=== PATIENT | male | born 1990 | race Caucasian/White ===

== ENCOUNTER 2020-09-16 12:26 | Emergency (ER) | payer OTHER, SELFPAY ==
[2020-09-16 12:26] VITALS: BP 115/111; PULSE 69; RESP 14; TEMP 36.4; O2SAT 99; BMI 34.5
[2020-09-16 12:54] VITALS: BP 115/111; PULSE 69; RESP 14; TEMP 36.4; O2SAT 99
--- NOTE | 2020-09-16 12:56 | HMH.EDUTC ---
[facility] [place] Disposition Clinical Impression: Exposure to COVID-19 virus Disposition: Home, Self-Care Condition on Discharge: Good Instructions: DI for COVID-19 (Suspected or Confirmed ), Preventing the Spread of Coronavirus Discharge Instructions Additional Instructions: Drink plenty of fluids. Take tylenol for pain or fever. Return if you begin to have difficulty breathing or other worsening concerning symptoms. Follow up with your regular doctor. GO TO THE ER FOR ANY WORSENING SYMPTOMS Referrals: PCP,No [Primary Care Provider] - Time of Disposition: 12:58 Medical Decision Making - Medical Records Medical records reviewed: No: I reviewed the patient's medical records. - Yao Inquiry Pt receiving controlled substance: No Vital Signs: 09/16/20 12:26 09/16/20 12:54 Temperature 97.5 F L 97.5 F L Temperature Source Oral Oral Pulse Rate 69 Pulse Rate [Right] 69 Respiratory Rate 14 14 Blood Pressure 115/111 H Blood Pressure [Right Arm] 115/111 H Blood Pressure Mean [Right Arm] 112 02 Sat by Pulse Oximetry 99 Oxygen Delivery Method Room Air Orders (Tests/Meds): ORDERS Category Date Time Status Covid-19 Nasal PCR Sendout P&C Routine Lab 09/16/20 12:40 Received [facility] [place] HPI - General Stated complaint: covid exposure Time Seen by Provider: 09/16/20 12:56 Description of Symptoms (Recalled from Triage Doc. by RN): pt request COVID test pt has no symptoms HEENT Symptoms (Recalled from RN notes): No Resp Symptoms (Recalled from RN notes): No Skin Symptoms (Recalled from RN notes): No MS Symptoms (Recalled from RN notes): No Functional Status (Recalled from RN notes): wnl - History of Present Illness Provider Complaint: He states that he has been exposed to covid. He denies that it was a close contact. He was helping one of his friends work on something, then he found out that that person had covid. He denies any symptoms so far. - Related Data Previous Rx's Medication Instructions Recorded amoxicillin 500 mg capsule 500 mg PO Q12H 10 Days #20 cap 10/24/19 prednisone 20 mg tablet 20 mg PO BID 5 Days #10 tab 10/24/19 Allergies Allergy/AdvReac Type Severity Reaction Status Date / Time No Known Allergies Allergy Verified 10/24/19 17:24 - Worker's Comp Is this a Worker's Comp case?: No Is this an H Worker's Comp?: No Is this a Radames Worker's Comp?: No [facility] History - Hepatitis A Screen Drug use history?: No High risk sexual behaviors?: No History of sexually transmitted infection?: No Currently employed?: No Childcare worker?: No Do you have indoor plumbing?: Yes Do you have electricity?: Yes Attestation statement:: This patient has been screened for Hepatitis A risk factors. I have reviewed the patient's past medical history: Yes Other Surgeries: Yes: Other Amputation: No Fractures: No - Social History Smoking Status: Never smoker Alcohol Intake: never Alcohol Intake Frequency:: holidays/special occasions only Substance Use Type: denies use Occupational Status: employed Housing: house Household Members: family Family Hx:: Diabetes ROS Obtained: Yes All systems reviewed & no additional complaints - Constitutional Constitutional: Reports system reviewed and no additional complaints, except as docu - Eyes Eyes: Reports system reviewed and no additional complaints, except as docu - ENT Ears, Nose, Mouth, and Throat: Reports system reviewed and no additional complaints, except as docu - Cardiovascular Cardiovascular: Reports system reviewed and no additional complaints, except as docu - Respiratory Respiratory: Reports system reviewed and no additional complaints, except as docu - Gastrointestinal Gastrointestingal: Reports: system reviewed and no additional complaints, except as docu Physical Exam - General General appearance: alert, in no apparent distress - Head Head exam: atraumatic, normocephalic, normal inspection - Eye Eye e
[2020-09-17 09:10] LABS: Covid-19 Nasal PCR Sendout P&C NEGATIVE
== END 2020-09-16 13:01 | disposition home or self-care (01) ==
PROVIDERS: Emergency Provider Nurse Practitioner Family
DX: Z20.822 Contact with and (suspected) exposure to COVID-19 (principal)
CPT/HCPCS: 99202; G0463; U0004

== ENCOUNTER → 2021-06-11 19:45 | Outpatient (CLI) | payer OTHER, SELFPAY | PROVIDERS: Visit Provider Nurse Practitioner Family | DX: Z20.822 Contact with and (suspected) exposure to COVID-19 (principal); U07.1 COVID-19 | CPT/HCPCS: C9803; U0003; U0005 ==

== ENCOUNTER → 2022-04-28 18:03 | Outpatient (CLI) | payer OTHER, SELFPAY ==
[2022-04-28 14:41] LABS: Basophils # 0.1 K/mm3 (0-0.2); Basophils % 0.8 % (0.1-2.0); Eosinophils # 0.1 K/mm3 (0.0-0.4); Eosinophils % 1.7 % (0.1-12.0); Hematocrit 47.3 % (42.0-52.0); Hemoglobin 15.2 g/dL (14.1-18.0); Lymphocytes # 2.5 K/mm3 (0.7-4.5); Lymphocytes % 30.6 % (10-50); Mean Corpuscular HGB Conc 32.2 g/dL (31.8-35.4); Mean Corpuscular Hemoglobin 28.5 pg (27.0-31.2); Mean Corpuscular Volume 88.4 fl (80-94); Mean Platelet Volume 8.1 fl (7.4-10.4); Monocytes # 0.6 K/mm3 (0.1-1.0); Monocytes % 7.5 % (1.7-9.3); Neutrophils # 4.9 K/mm3 (1.8-7.8); Neutrophils % 59.4 % (37.0-80.0); Platelet Count 414 K/mm3 (142-424); Red Blood Count 5.34 M/mm3 (4.60-6.20); Red Cell Distribution Width 13.2 % (11.5-17.5); White Blood Count 8.3 K/mm3 (4.8-10.8)
[2022-04-28 15:01] LABS: Alanine Aminotransferase 41 U/L (12-78); Albumin Level 4.4 g/dl (3.5-5.0); Albumin/Globulin Ratio 1.6 (1.1-1.8); Alkaline Phosphatase 112 U/L (38-126); Anion Gap 13.8 mEq/L (5-15); Aspartate Amino Transferase 43 U/L (17-59); Bilirubin,Total 0.6 mg/dl (0.2-1.3); Blood Urea Nitrogen 11 mg/dl (9-20); Calcium 9.3 mg/dl (8.4-10.2); Carbon Dioxide 25 mmol/L (22.0-30.0); Chloride 107 mmol/L (98-107); Chol/HDL Ratio 4.9 (1-3.5); Cholesterol 161 mg/dl (140-200); Estimated Glomerular Filt Rate 99 ml/min (>60); GFR (African American) 120 ML/MIN (>60); Globulin 2.7 g/dL (1.3-3.2); Glucose 89 mg/dl (74-100); HDL Cholesterol 33 mg/dl (40-60); Potassium 3.8 mmoL/L (3.5-5.1); Sodium 142 mmol/L (136-145); Total Protein,Serum 7.1 g/dl (6.3-8.2); Triglycerides 172 mg/dl (30-150); VLDL Cholesterol 34 mg/dL (0-40)
[2022-04-28 15:17] LABS: 25-OH Vitamin D, Total 38.3 ng/mL (30-100)
[2022-04-28 15:32] LABS: Thyroid Stimulating Hormone 0.71 uIU/mL (0.465-4.68)
[2022-04-28 15:51] LABS: Vitamin B12 498 pg/mL (239-931)
[2022-04-30 10:09] LABS: Direct LDL Cholesterol 92 mg/dL (100-129)
== END ==
PROVIDERS: PCP Physician Assistant; Visit Provider Physician Assistant
DX: F41.9 Anxiety disorder, unspecified (principal); R53.83 Other fatigue; E66.9 Obesity, unspecified; Z68.32 Body mass index [BMI] 32.0-32.9, adult
CPT/HCPCS: 80053; 80061; 82306; 82607; 84443; 85025

== ENCOUNTER 2023-12-16 09:16 | Emergency (ER) | payer OTHER, SELFPAY ==
[2023-12-16 09:40] VITALS: BP 144/93; PULSE 96; RESP 20; TEMP 36.7; O2SAT 96; BMI 34.9
[2023-12-16 10:00] LABS: UTC Strep Screen (Rapid) Negative (Negative)
--- NOTE | 2023-12-16 10:18 | ED_ITS ---
Discharge Plan Disposition Patient Disposition: Home, Self-Care Condition: Good Prescriptions Prescriptions: New methylprednisolone [Medrol (Humberto)] 4 mg tablets,dose pack See Rx Instructions .Route .COMPLEX 6 Days Qty: 21 0RF Rx Instructions: taper pack; vjbkdaqgnjwqbsm-pzcdtxixq-XD [Bromfed DM] 2-30-10 mg/5 mL syrup 10 ml PO Q6H PRN (Reason: cold symptoms) Qty: 200 0RF guaifenesin [Mucinex] 600 mg tablet extended release 12hr 1,200 mg PO BID PRN (Reason: cough) Qty: 20 0RF azithromycin [Zithromax Z-Humberto] 250 mg tablet See Rx Instructions .ROUTE .COMPLEX 5 Days Qty: 6 0RF Rx Instructions: For 250 mg dose pack: take 500 mg today (day 1), then 250 mg for 4 days (days 2-5) albuterol sulfate [Proventil HFA] 90 mcg/actuation HFA aerosol inhaler 1 - 2 puff inhalation Q6H PRN (Reason: shortness of breath or wheezing) Qty: 8.5 0RF Referrals Follow up/Referrals: Provider,Referral, MD [Primary Care Provider] - See instructions Activity Restrictions/Add. Instructions Additional Instructions/Restrictions: * Start antibiotic today. Be sure to complete entire prescription even if feeling better * Monitor temp. Tylenol every 4 hours as needed and / or ibuprofen every 6 hours as needed ( As long as your primary care physician has told you that it ok to take both. For fever/aches/pains ER if no less than 101 despite Tylenol or Motrin * Humidifier/vaporizer or hot steamy shower * Inhaler every 4-6 hours as needed like we discussed. If unsure how to use it, ask pharmacist to demonstrate how. Should help open airways and improve cough, wheezing, and shortness of breath * Mucinex during the day for your cough and cough suppressant only at night. Be sure to drink lots of water. Insurance may not cover a prescriptions for mucinex. Might be cheaper to get 400mg tablets and take 2 tablet in the morning, mid-day and evening with lots of water. *Bromfed may cause drowsiness. Know how it effects you (your child) before driving, caring for small child, or sending your child to school. Not other antihistamines/allergy medications while taking bromfed *Start steroid today. Helps with inflammation therefore, cough and wheezing. Follow directions on the package. Reviewed side effects. Patient reports taking them before. Follow up IMMEDIATELY for new or worsening of symptoms OR no noticeable improvement over the next 48-72 hours. 911 immediately for any life threatening symptoms such as chest pain or difficulty breathing Clinical Impressions Clinical Impression: Sinusitis, Bronchitis Instructions Patient Instructions: DI for Sinusitis, Acute Bronchitis Discharge ED Provider: Genevieve Ledezma [facility] [place] General Stated complaint: sore throat, runny nose, cough Mode of Arrival: Ambulatory Source of Information: Patient Limitations: No Limitations Time Seen by Provider: 12/16/23 10:18 Description of Symptoms (Recalled from Triage Doc. by RN): PATIENT C/O SORE THROAT, RUNNY NOSE AND PRODUCTIVE COUGH SINCE TUESDAY HEENT Symptoms (Recalled from RN notes): Yes Resp Symptoms (Recalled from RN notes): Yes Skin Symptoms (Recalled from RN notes): No MS Symptoms (Recalled from RN notes): No Functional Status (Recalled from RN notes): WNL History of Present Illness Provider Complaint: Patient states that he has been having sore throat, runny nose, cough that is productive at times, and pain with swallowing since Tuesday states that he has been taking OTC cough and cold medications but they havent helped much states today his throat was feeling worse so he came in to get checked Related Data Previous Rx's Medication Instructions Recorded albuterol sulfate 90 mcg/actuation 1 - 2 puff inhalation Q6H PRN 12/16/23 aerosol inhaler (Proventil HFA) shortness of breath or wheezing #8.5 grams azithromycin 250 mg tablet See Rx Instructions PO .COMPLEX 5 12/16/23 (Zithromax Z-Humberto) days #6 tabs bnkxmpelbqmdbsk-dslwrporlsohvjx-XP 10 ml PO Q6H PRN cold symptoms 12/16/23 2 mg-30 mg-10 mg/5 mL oral syrup #200 mL (Bromfed DM) guaifenesin 600 mg tablet, 1,200 mg (2 x 600 mg) PO BID PRN 12/16/23 extended release 12 hr (Mucinex) cough #20 tabs methylprednisolone 4 mg tablets in See Rx Instructions .Route 12/16/23 a dose pack (Medrol (Humberto)) .COMPLEX 6 days #21 tabs Allergies Allergy/AdvReac Type Severity Reaction Status Date / Time No Known Allergies Allergy Verified 04/28/22 09:34 Worker's Comp Is this a Worker's Comp case?: No [facility] Disclaimer: The information contained in this section may have been updated after the patient was seen, as this information can be updated by other users. Medical History (Updated 12/16/23 @ 10:29 by Genevieve Ledezma APRN) Anxiety Low back pain Crush accident Surgical History Fracture of hand Family History (Updated 04/28/22 @ 09:37 by Mary Jackson MA) Mother Diabetes Father Heart attack Social History (Updated 04/28/22 @ 10:20 by YAYA Renteria) Smoking Status: Never smoker alcohol intake: never substance use type: denies use current occupational status: employed Travel in the last 8 weeks: None household members: family housing: house ROS Obtained: Yes All systems reviewed & no additional complaints except as documented and Yes Systems reviewed as appropriate & no additional complaints except as documented Constitutional Constitutional: Reports system reviewed and no additional complaints, except as documented and Reports as per HPI ENT Ears, Nose, Mouth, and Throat: Reports system reviewed and no additional complaints, except as documented, Reports as per HPI, Reports nasal congestion, Reports sinus pressure and Reports sore throat Cardiovascular Cardiovascular: Reports system reviewed and no additional complaints, except as documented and Reports as per HPI Respiratory Respiratory: Reports system reviewed and no additional complaints, except as documented, Reports as per HPI, Reports chest congestion and Reports cough Gastrointestinal Gastrointestingal: Reports system reviewed and no additional complaints, except as documented and as per HPI Physical Exam General General appearance: alert and in no apparent distress ENT ENT exam: Present mucous membranes moist Expanded ENT Exam Nose exam: Present sinus tenderness Throat exam: Present tonsillar erythema Respiratory Respiratory exam: Present normal lung sounds bilaterally; Absent respiratory distress or wheezes Cardiovascular Cardiovascular exam: Present regular rate, normal rhythm and normal heart sounds Neurological Exam Neurological exam: Present alert, oriented X3 and normal gait Medical Decision Making Yao Inquiry Pt receiving controlled substance: No Yao was queried for this patient: No Vital Signs: 12/16/23 09:40 Temperature 98.1 F Temperature Source Oral Pulse Rate [Left Brachial] 96 H Respiratory Rate 20 Blood Pressure [Left Arm] 144/93 H Blood Pressure Mean [Left Arm] 110 Blood Pressure Source [Left Arm] Automatic Cuff Blood Pressure Position [Left Arm] Sitting 02 Sat by Pulse Oximetry 96 Oxygen Delivery Method Room Air Lab Data Lab results reviewed: Yes I reviewed the patient's lab results. Lab Results 12/16/23 09:46: Strep Scn Rapid Clinic Negative Orders (Tests/Meds): ORDERS Category Date Time Status Strep Screen Confirmation Stat Micro 12/16/23 09:46 Received
[2023-12-16 10:32] VITALS: BP 144/93; PULSE 96; RESP 20; TEMP 36.7; O2SAT 96
== END 2023-12-16 10:41 | disposition home or self-care (01) ==
PROVIDERS: Emergency Provider Nurse Practitioner
DX: J20.9 Acute bronchitis, unspecified (principal); J01.90 Acute sinusitis, unspecified; R07.0 Pain in throat; R05.9 Cough, unspecified; R09.81 Nasal congestion
CPT/HCPCS: 87880; 99204; 99212; G0463

== ENCOUNTER 2023-12-29 15:50 | Emergency (ER) | payer OTHER, SELFPAY ==
[2023-12-29 16:00] VITALS: BP 144/96; PULSE 88; RESP 18; TEMP 36.7; O2SAT 95; BMI 34.8
--- NOTE | 2023-12-29 16:30 | ED_ITS ---
Discharge Plan Disposition Patient Disposition: Home, Self-Care Condition: Good Prescriptions Prescriptions: New prednisone 10 mg tablet 10 mg PO DIRECTED 9 Days Qty: 21 0RF Rx Instructions: Take 4 tablets daily for 3 days, then take 2 tablets daily for 3 days, then take 1 tablet daily for 3 days, then stop. benzonatate 100 mg capsule 100 mg PO TIDP PRN (Reason: Cough) Qty: 30 0RF amoxicillin-pot clavulanate 875-125 mg Tablet 1 tab PO Q12H Qty: 20 0RF No Action albuterol sulfate [Proventil HFA] 90 mcg/actuation HFA aerosol inhaler 1 - 2 puff inhalation Q6H PRN (Reason: shortness of breath or wheezing) Qty: 8.5 0RF Referrals Follow up/Referrals: Provider,Referral, MD [Primary Care Provider] - See instructions Activity Restrictions/Add. Instructions Additional Instructions/Restrictions: Drink plenty of fluids. Take tylenol or ibuprofen for pain or fever. Take the medications as directed. Follow up with your regular doctor. GO TO THE ER FOR ANY WORSENING SYMPTOMS Clinical Impressions Clinical Impression: Sinusitis Qualifiers: Sinusitis location: unspecified location Chronicity: unspecified Qualified Code(s): J32.9 - Chronic sinusitis, unspecified Instructions Patient Instructions: Sinusitis, DI for Sinusitis Discharge ED Provider: Edvin Cotton [facility] General Stated complaint: cough, poss sinus inf Mode of Arrival: Ambulatory Source of Information: Patient Limitations: No Limitations Time Seen by Provider: 12/29/23 16:18 Description of Symptoms (Recalled from Triage Doc. by RN): Pt's symptoms are drainage, cough, and sinus pressure. HEENT Symptoms (Recalled from RN notes): Yes Resp Symptoms (Recalled from RN notes): No Skin Symptoms (Recalled from RN notes): No MS Symptoms (Recalled from RN notes): No Functional Status (Recalled from RN notes): n/a History of Present Illness Provider Complaint: He states that he has had sinus congestion, ear pain, and a cough for the past 1 week. Related Data Previous Rx's Medication Instructions Recorded albuterol sulfate 90 mcg/actuation 1 - 2 puff inhalation Q6H PRN 12/16/23 aerosol inhaler (Proventil HFA) shortness of breath or wheezing #8.5 grams amoxicillin 875 mg-potassium 1 tab PO Q12H #20 tabs 12/29/23 clavulanate 125 mg tablet benzonatate 100 mg capsule 100 mg PO TIDP PRN Cough #30 caps 12/29/23 prednisone 10 mg tablet 10 mg PO DIRECTED 9 days #21 12/29/23 tabs Allergies Allergy/AdvReac Type Severity Reaction Status Date / Time No Known Allergies Allergy Verified 12/29/23 16:11 Worker's Comp Is this a Worker's Comp case?: No [facility] Disclaimer: The information contained in this section may have been updated after the patient was seen, as this information can be updated by other users. Medical History (Updated 12/29/23 @ 16:49 by Edvin Cotton APRN) Anxiety Low back pain Crush accident Surgical History Fracture of hand Family History Mother Diabetes Father Heart attack Social History Smoking Status: Never smoker alcohol intake: never substance use type: denies use current occupational status: employed Travel in the last 8 weeks: None household members: family housing: house ROS Obtained: Yes All systems reviewed & no additional complaints except as documented Constitutional Constitutional: Reports poor appetite Eyes Eyes: Reports system reviewed and no additional complaints, except as documented ENT Ears, Nose, Mouth, and Throat: Reports as per HPI Cardiovascular Cardiovascular: Reports system reviewed and no additional complaints, except as documented and Denies chest pain Respiratory Respiratory: Denies shortness of breath, Denies chest congestion, Reports cough, Denies stridor and Denies wheezing Gastrointestinal Gastrointestingal: Reports system reviewed and no additional complaints, except as documented; Denies abdominal pain, diarrhea or vomiting Musculoskeletal Musculoskeletal: Reports system reviewed and no additional complaints, except as documented and Denies arthralgias Integumentary/Breasts Skin/Breast: Reports system reviewed and no additional complaints, except as documented and Denies rash Neurologic Neurologic: Denies paresthesias Allergic/Immunologic Allergic/Immunologic: Denies wheezing Physical Exam General General appearance: alert and in no apparent distress Eye Eye exam: Present normal appearance, PERRL and EOMI ENT ENT exam: Present mucous membranes moist and normal external ear exam Expanded ENT Exam External ear exam: Present normal external inspection TM/Canal exam: Bilateral TM: erythema and bulging Nose exam: Absent sinus tenderness Nasal speculum exam: Bilateral: normal Mouth exam: Present normal external inspection; Absent drooling Teeth exam: Present normal inspection Throat exam: Present tonsillar erythema and tonsillomegaly Neck Neck exam: Present normal inspection, full ROM and trachea midline; Absent tenderness, lymphadenopathy or thyromegaly Chest Chest inspection: Present normal inspection and symmetric chest wall rise; Absent tenderness or rash Respiratory Respiratory exam: Present normal lung sounds bilaterally; Absent respiratory distress, wheezes, stridor or accessory muscle use Cardiovascular Cardiovascular exam: Present regular rate, normal rhythm and normal heart sounds Abdominal Exam Abdominal exam: Present soft; Absent distention, tenderness, guarding, rebound or rigidity Extremities Exam Extremities exam: Present normal inspection, full ROM and normal capillary refill; Absent tenderness or calf tenderness Back Exam Back exam: Present normal inspection and full ROM; Absent tenderness Neurological Exam Neurological exam: Present alert and oriented X3 Psychiatric Psychiatric exam: Present normal affect and normal mood Skin Skin exam: Present warm, dry, intact and normal color Lymphatic Lymphatic Findings: no adenopathy Medical Decision Making Medical Records Medical records reviewed: No I reviewed the patient's medical records. Yao Inquiry Pt receiving controlled substance: No Vital Signs: 12/29/23 16:00 Temperature 98.0 F Temperature Source Oral Pulse Rate [Right Radial] 88 Respiratory Rate 18 Blood Pressure [Right Arm] 144/96 H Blood Pressure Mean [Right Arm] 112 Blood Pressure Source [Right Arm] Automatic Cuff Blood Pressure Position [Right Arm] Sitting 02 Sat by Pulse Oximetry 95 Oxygen Delivery Method Room Air
[2023-12-29 16:56] VITALS: BP 144/96; PULSE 88; RESP 18; TEMP 36.7; O2SAT 95
== END 2023-12-29 16:55 | disposition home or self-care (01) ==
PROVIDERS: Emergency Provider Nurse Practitioner Family
DX: J01.90 Acute sinusitis, unspecified (principal); H92.03 Otalgia, bilateral; R05.9 Cough, unspecified; R09.81 Nasal congestion
CPT/HCPCS: 99212; 99214; G0463

== ENCOUNTER 2025-01-14 16:23 | Outpatient (CLI) | payer OTHER, SELFPAY ==
[2025-01-14 16:32] LABS: HIV 1 Ab ND; HIV 2 Ab ND; Hepatitis C Genotype ND
[2025-01-14 17:51] LABS: Basophils # 0.1 K/mm3 (0-0.2); Basophils % 0.7 % (0.1-2.0); Eosinophils # 0.2 Kmm3 (0.0-0.4); Eosinophils % 2.2 % (0.1-12.0); Hematocrit 45.8 % (42.0-52.0); Hemoglobin 15.3 g/dL (14.1-18.0); Immature Granulocytes # 0.03 10^3uL; Immature Granulocytes % 0.3 %; Lymphocytes # 2.5 K/mm3 (0.7-4.5); Lymphocytes % 27.4 % (10-50); Mean Corpuscular HGB Conc 33.4 g/dL (31.8-35.4); Mean Corpuscular Hemoglobin 28.4 pg (27.0-31.2); Mean Corpuscular Volume 85.1 fl (80-94); Monocytes # 0.8 K/mm3 (0.1-1.0); Monocytes % 8.1 % (1.7-9.3); Neutrophils # 5.7 K/mm3 (1.8-7.8); Neutrophils % 61.3 % (37.0-80.0); Nucleated Red Blood Cells # 0 10^3/uL; Nucleated Red Blood Cells % 0 %; Platelet Count 334 K/mm3 (142-424); Red Blood Count 5.38 M/mm3 (4.60-6.20); Red Cell Distribution Width 12.8 % (11.5-17.5); Red Cell Distribution Width-SD 39.8 fL; White Blood Count 9.2 K/mm3 (4.8-10.8)
[2025-01-14 19:59] LABS: Albumin Level 4.6 g/dl (3.5-5.0); Chloride 105 mmol/L (98-107); Sodium 137 mmol/L (136-145)
[2025-01-14 20:00] LABS: Potassium 4.9 mmoL/L (3.5-5.1)
[2025-01-14 20:02] LABS: Alanine Aminotransferase 30 U/L (12-78); Albumin/Globulin Ratio 1.9 (1.1-1.8); Alkaline Phosphatase 94 U/L (38-126); Anion Gap 12.9 mEq/L (5-15); Aspartate Amino Transferase 26 U/L (17-59); Bilirubin,Total 0.5 mg/dl (0.2-1.3); Blood Urea Nitrogen 20 mg/dl (9-20); Carbon Dioxide 24 mmol/L (22.0-30.0); Cholesterol 161 mg/dl (140-200); Estimated Glomerular Filt Rate 58 ml/min (>60); GFR (African American) 71 ML/MIN (>60); Globulin 2.4 g/dL (1.3-3.2); Triglycerides 242 mg/dl (30-150); VLDL Cholesterol 48 mg/dL (0-40)
[2025-01-14 20:03] LABS: Calcium 9.3 mg/dl (8.4-10.2); Chol/HDL Ratio 4.9 (1-3.5); Glucose 86 mg/dl (74-100); HDL Cholesterol 33 mg/dl (40-60)
[2025-01-14 20:13] LABS: Direct LDL Cholesterol 90.97 mg/dL (100-129)
[2025-01-14 20:14] LABS: 25-OH Vitamin D, Total 36.3 ng/mL (30-100)
[2025-01-14 20:32] LABS: Thyroid Stimulating Hormone 1.47 uIU/mL (0.465-4.68)
[2025-01-16 09:11] LABS: HIV Screen 4th Generation wRfx Non Reactive (Non Reactive)
[2025-01-16 13:11] LABS: Testosterone,Total 182 ng/dL (264-916)
== END 2025-01-14 23:59 | disposition home or self-care (01) ==
LOC: LAB 16:24
PROVIDERS: PCP Physician Assistant; Visit Provider Physician Assistant
DX: Z11.4 Encounter for screening for human immunodeficiency virus [HIV] (principal); Z13.220 Encounter for screening for lipoid disorders; Z11.59 Encounter for screening for other viral diseases; R53.83 Other fatigue
CPT/HCPCS: 36415; 80053; 80061; 82306; 84403; 84443; 85025; 86703; 87522; G0432

== ENCOUNTER 2025-02-26 08:28 | Outpatient (CLI) | payer OTHER, SELFPAY ==
--- OUTSIDE RECORDS SUMMARY | 2025-02-26 08:34 | XMS_ITS | Data Portability ---
Author Organization [employer] [facility] Address [address] [place] [address] Assessment No assessment recorded. Plan of Treatment Reminders Order Date Submit Date Provider Last Modified By Organization Details Last Modified Time Details Appointments FOLLOW UP 30 2024 03:30P Latha Santana PA-C Not available Not available Not available Lab lipid panel, serum 2024 025 [employer] ([facility], [address] [place] [address], [id number], 01/17/2025 10:31:26 Hepatitis C IgG Ab, qual, serum 2024 025 [employer] ([facility]), [address] [place] [address], [id number], 01/17/2025 10:31:55 HIV 1 + 2, meaningfu l use set 2024 025 [employer] [facility]), [address] [place] [address], [id number], 01/17/2025 10:31:55 CBC w/ auto diff 2024 025 [facility] ([facility]), [address] [place] [address], [id number], 01/14/2025 19:41:47 CMP, serum or plasma 2024 025 [employer] ([facility]), [address] [place] [address], [id number], 01/17/2025 10:31:25 vitamin D, 25-hydrox y, total, serum 2024 025 [facility] ([place]), [address] [place], [address], 01/15/2025 07:34:57 TSH, ultra-sen sitive, serum 2024 025 [facility] ([place]), [address] [place], [address], 01/17/2025 10:31:25 testoster one, total, serum 2024 025 [facility]), [address] [place], [address], 01/17/2025 10:31:25 Referral None recorded. Procedures None recorded. Surgeries None recorded. Imaging home sleep study 2024 025 [facility], [address], [place], [address], 02/12/2025 14:20:58 Medication Orders None recorded. Patient TargetsNo targets recorded. Patient Instructions Encounter Date Encounter Id Patient Instructions Last Modified By Organization Details Last Modified Time 12/20/2024 [id number] HIV testing: car e instructions [email or web address] Not available 12/20/2024 17:40:33 Reason for Referral None Reported. Results Created Date Observation Date Name Description Value Unit Range Abnormal Flag Note LastModifiedBy Organization Detail LastModifiedTime 02/13/2001/30/2025 home sleep study No observ ation record ed. [facility] [address], [place], [address], 02/12/2025 14:50:49 Result Notes None recorded. Problems Name Problem SNOMED Code Status Onset Date Resolution Date Notes Provider Name and Address Organization Details Recorded Time Fatigue 90809680 Active 2024 GIOVANA MCKEON NP [address] [place], [address], [employer] 17:00:24 Elevated blood-pressure reading without diagnosis of hypertension 086776832 Active 2024 GIOVANA MCKEON NP [address] [place], [address], [employer] 17:40:47 Essential hypertension 93229177 Active 2024 GIOVANA MCKEON NP [address] [place], [address], [employer] 17:47:55 Obstructive sleep apnea syndrome 85350774 Active 2024 YAYA Cantor [address] [place] [address], [address], [employer] 13:49:21 Problem Notes None recorded. Procedures Surgical History Date Name Laterality Status Provider Name and Address Organization Details Recorded Time Orthopedic Surgery completed [employer] 12/20/2024 16:54:52 removal of wart completed [employer] 12/20/2024 16:54:59 Imaging Results None recorded. Procedure Notes None recorded. Medical Equipment None Reported. Allergies No known drug allergies Medications Name Sig Start Date Stop Date Status Note LastModified by Organization Details LastModified Time prednisone 10 mg tablet TAKE 4 TABLETS BY MOUTH ONCE DAILY FOR 3 DAYS THEN 2 ONCE DAILY FOR 3 DAYS THEN 1 ONCE DAILY FOR 3 DAYS THEN STOP 12/20 completed Not Available Not Available Not Available azithromyci n 250 mg tablet TAKE 2 TABLETS BY MOUTH ON DAY 1, AND THEN TAKE 1 TABLET BY MOUTH ONCE A DAY ON DAY 2 THROUGH DAY 5 12/20 completed Not Available Not Available Not Available benzonatate 100 mg capsule TAKE 1 CAPSULE BY MOUTH THREE TIMES DAILY NEEDED FOR COUGH 12/20 completed Not Available Not Available Not Available methylpredn isolone 4 mg tablets in a dose pack TAKE BY MOUTH DIRECTED ON INSIDE OF PACKAGE 12/20 completed Not Available Not Available Not Available albuterol sulfate HFA 90 mcg/actuati on aerosol inhaler INHALE 1 TO 2 PUFFS BY MOUTH EVERY 6 HOURS NEEDED FOR SHORTNESS OF BREATH OR WHEEZING 12/20 completed Not Available Not Available Not Available bromphenira mine-pseudo ephedrine-D M 2 mg-30 mg-10 mg/5 mL oral syrup TAKE 10 ML BY MOUTH EVERY 6 HOURS NEEDED FOR COLD SYMPTOMS 12/20 completed Not Available Not Available Not Available amoxicillin 875 mg-potassiu m clavulanate 125 mg tablet TAKE 1 TABLET BY MOUTH EVERY 12 HOURS 12/20 completed Not Available Not Available Not Available Vitals Date Recorded Body weight Body mass index (BMI) Body height Oxygen saturation Oxygen saturation in Arterial blood by Pulse oximetry Heart rate Body temperature Systolic blood pressure Diastolic blood pressure Systolic blood pressure Diastolic blood pressure Systolic blood pressure Diastolic blood pressure Provider Name and Address Organization Details Last Updated DateTime 054532. 51 g 36.2 kg/m2 181.61 cm 96 % 96 % 80 /min 98.2 [degF] 142 mm[Hg] 92 mm[Hg] 136 mm[Hg] 86 mm[Hg] 136 mm[Hg] 88 mm[Hg] [employer]ella [employer]. 08:37:10 Social History Question Answer Notes LastModified by Organizat ion Details LastModified Time Tobacco Smoking Status Never Smoker Mariella [employer]. 12/20/2024 16:45:34 Do You Have An Advance Directive? No Information not available 12/20/2024 Is Your Home Air Conditioned? Yes Information not available 12/20/2024 Are You Blind Or Do You Have Difficulty Seeing? No Information not available 12/20/2024 What Is Your Level Of Caffeine Consumption? Heavy Information not available 12/20/2024 Have You Been To An Area Known To Be High Risk For COVID-19? No Information not available 12/20/2024 Are You Deaf Or Do You Have Serious Difficulty Hearing? No Information not available 12/20/2024 What Type Of Diet Are You Following? REGULAR Information not available 12/20/2024 What Is The Highest Grade Or Level Of School You Have Completed Or The Highest Degree You Have Received? [id number] Information not available 12/20/2024 How Many Days Of Moderate To Strenuous Exercise, Like A Brisk Walk, Did You Do In The Last 7 Days? 5 Information not available 12/20/2024 Have There Been Any Changes To Your Family Or Social Situation? No Information no t available 12/20/2024 Which Of Your Hands Is Dominant? Right Information not available 12/20/2024 Do You Have A Medical Power Of Machine Milker? No Information not available 12/20/2024 What Was The Date Of Your Most Recent Tobacco Screening? 12/20/2024 Information not available 12/20/2024 Do You Have Any Pets? Yes Information not available 12/20/2024 What Is Your Relationship Status? Information not available 12/20/2024 Do You Use Your Seat Belt Or Car Seat Routinely? Yes Information not available 12/20/2024 Do You Have Smoke And Carbon Monoxide Detectors In Your Home? Yes Information not available 12/20/2024 Are You Passively Exposed To Smoke? No Information no t available 12/20/2024 Are There Any Smokers In Your House? No Information not available 12/20/2024 Do You Participate In Social Media? Yes Information not available 12/20/2024 Do You Use Sunscreen Routinely? No Information not available 12/20/2024 Has Tobacco Cessation Counseling Been Provided? No Information not available 12/20/2024 Have You Recently Traveled Abroad? No Information not available 12/20/2024 Do You Have Difficulty Walking Or Climbing Stairs? No Information not available 12/20/2024 Are You Currently In School? No Information not available 12/20/2024 Do You Have Any Dietary Restrictions? No Information not available 12/20/2024 Sex: Unknown Functional Status Question Answer Note LastModified by Organizat ion Details LastModified Time Do you use any illicit or recreational drugs? No Information not available 12/20/2024 Do you or have you ever used any other forms of tobacco or nicotine? No Information not available 12/20/2024 What is your level of alcohol consumption? None Information not available 12/20/2024 Are you currently employed? Yes Information not available 12/20/2024 Do you have transportation difficulties? No Information not available 12/20/2024 Are you able to walk? YESWOREST Information not available 12/20/2024 Do you have difficulty doing errands alone? No Information not available 12/20/2024 Are you able to care for yourself? Yes Information not available 12/20/2024 Do you have difficulty dressing or bathing? No Information not available 12/20/2024 What is your exercise level? Heavy Information not available 12/20/2024 Mental Status Question Answer Note LastModified by Organizat ion Details LastModified Time Do you feel stressed (tense, restless, nervous, or anxious, or unable to sleep at night)? [id number] Information not available 12/20/2024 Do you have difficulty concentrating, remembering or making decisions? No Information no t available 12/20/2024 Family History Relationship Description Onset Age of this Age Resolved Age Notes LastModified by Organization Details LastModified Time Mother Diabetes mellitus Not available 2024 16:52:55 Father Myocardial infarction Not available 12/20 16:53:15 Medical History Condition Response Coronary Artery Disease N Other N Gout N Blood Diseases N Kidney Stones N Hyperthyroidism N Blood Transfusion N Breast Cancer N Emergency room visit since last appointm ent. N Lung Disease N COPD N Depression N Hypothyroidism N Dermatologic Disorders N Defects or Inherited Disease N Developmental or Behavioral Disorders N Breast Problem N Difficulty Swallowing N Anesthesia Complications N History of STI N Anxiety Disorder N Meniere's disease N Autoimmune disease N Muscle, Joint, or Bone Problems N Vision or Eye Problems N Arthritis N Infertility N Polyps N Mental Disorder N Congenital Anomalies N Acid Reflux (GERD) N Cancer N Stroke N Neurologic/Epilepsy N Endometriosis N Bladder or Kidney Problems N High Cholesterol N Liver Disease N Organ Transplant N Psychiatric/Mental Health Condition N Dialysis N Headaches N Fibromyalgia N Schizophrenia N Kidney Disease N Allergies/Hayfever N Heart Problems N Ear or Hearing Problems N Hospitalizations N Learning Disorder N Artificial Joints N Thyroid Problems N GI Problems N Acne N ADD/ADHD N Eating Disorder N Anemia N Constipation N Mental Illness N Diabetes N Ovarian Cancer N Bedwetting N Hepatitis/Liver Disease N Tuberculosis N Eczema N Abuse/Domestic Violence N Diverticulitis N Asthma N Trauma/Violence N Substance Abuse N Reflux/GERD N Depression/ depression N Hepatitis N Heart Disease N Pulmonary Embolism N Tourette Syndrome N Chronic Ear Infections N Pre-Eclampsia N Hypertension N Chicken Pox N Autism Spectrum Disorder (ASD) N Osteoporosis N Thrombophilias N Immunizations Vaccine Type Date Status Note Provider Nam e and Address Organization Details Recorded Time DTaP, unspecified formulation 6 completed Not Available [facility] 12/20/2024 16:43:11 MMR 6 completed Not Available [facility] 12/20/2024 16:43:11 OPV 6 completed Not Available [facility] 12/20/2024 16:43:11 Hep B, adolescent or pediatric 7 completed Not Available [facility] hospital 12/20/2024 16:43:11 Hep B, adolescent or pediatric 7 completed Not Available [facility] hospital 12/20/2024 16:43:11 Hep B, adolescent or pediatric 7 completed Not Available Critical access hospital 12/20/2024 16:43:11 Past Encounters Encounter ID Performer Location Encounter Start Date Encounter Closed Date Diagnosis/Indication Diagnosis SNOMED-CT Code Diagnosis ICD10 Code Diagnosis Note [id number] YAYA Cantor [facility] [address] [place] [id number] 12/20/2024 16:09:07 12/24/2024 11:30:32 Fatigue 19256977 R53.83 HIV screening 266530082 Z11.4 Hepatitis C screening 41 2847160 Z11.59 Elevated blood-pressure reading without diagnosis of hypertension 001380256 R03.0 Diet and exercise education provided. Wants to try lifestyle changes before starting any additional blood pressure medication /treatment . Hyperlipid emia screening 487103505 Z13.220 Health Concerns Section Related Observation LastModified by Organization Detai ls LastModified Time None Recorded Concern Status LastModified by Organization Details LastModified Time None Recorded Advance Directives Directive N: Payers Insurance Date Sequence Insurance Name Policy Number Policy Todd Covered Member ID Todd Member ID Guarantor Name 12/20/2024 1 *SELF PAY* Christian Christopher 02/25/2025 1 [place] [id number] Maty Siddiqui Ashwin [id number] Edvin Ashwin Notes Date Note Type Note Provider Name and Address Organization Details Recorded Time 12/20/2024 text/html Presents today to establish care. Reports that his is concerned about the fatigue he is experiencing. He does snore. YAYA Cantor [address] [place] [address], [phone], [facility] [employer] 12/21/2024 17:32:38
[2025-02-27 08:28] LABS: Testosterone,Total 441 ng/dL (264-916)
== END 2025-02-26 23:59 | disposition home or self-care (01) ==
LOC: LAB 08:30
PROVIDERS: PCP Physician Assistant; Visit Provider Physician Assistant
DX: R79.89 Other specified abnormal findings of blood chemistry (principal)
CPT/HCPCS: 36415; 84403